=== PATIENT | female | born 1945 | race Caucasian/White ===

== ENCOUNTER 2017-11-30 17:48 | Emergency (ER) | payer MEDICARE, OTHER ==
--- NOTE | 2017-11-30 19:04 | CT ---
NONCONTRAST HEAD CT: 11/30/17 COMPARISON: 08/25/15. HISTORY: Pain. Injury. Patient was pulling out a tree root and fell backward onto concrete. Intermittent dizzi ness and mild headache. TECHNIQUE: Noncontrast head CT is performed from skull base to skull vertex. FINDINGS: No parenchymal hemorrhage. No extra-axial hematoma. No midline shift. Basilar cisterns are patent. Br ain volume, age appropriate. Cortical hutson-white matter differentiation is preserved. Ventricles and sulci and patent and symmetric. Small left parietal scalp hematoma. Calvarium is intact. Adequate aeration of the sinuses and mastoid air cells. IMPRESSION: No acute intracranial process. POS: [facility]
[2017-11-30] MEDS ORDERED: Ondansetron ODT 4 MG TAB ONE (19:28)
== END 2017-11-30 19:36 | disposition home or self-care (01) ==
LOC: ERS 17:48
DX: S00.03XA Contusion of scalp, initial encounter (principal); E78.5 Hyperlipidemia, unspecified; Z79.899 Other long term (current) drug therapy; W18.09XA Striking against other object with subsequent fall, initial encounter; Y92.096 Garden or yard of other non-institutional residence as the place of occurrence of the external cause
CPT/HCPCS: 70450; Q0162